=== PATIENT | male | born 1970 | race Two or more races ===

== ENCOUNTER 2024-09-15 10:11 | Emergency (ER) | payer SELFPAY ==
[2024-09-15] MEDS: PROPARACAINE 0.5% OPHTH DROPS 15 ML BTL BOTH EYES STA (11:38)
[2024-09-15] MEDS: TOBRA-DEXAMET 0.3-0.1% OPHTH DROPS 2.5 ML BTL BOTH EYES STA (11:39)
[2024-09-15] MEDS: DIPH,PERTUS(ACELL)TETVAC-LF 0.5 ML VIAL IM ONE (11:39)
[2024-09-15] MEDS: FLUORESCEIN STRIPS 1 MG STRIP RIGHT EYE ONE (11:39)
[2024-09-15 12:20] VITALS: BP 129/72; PULSE 74; RESP 18; TEMP 98.1
--- NOTE | 2024-09-15 17:01 | ED ---
Eye Problem HPI - General Source: patient Mode of arrival: ambulatory Limitations: no limitations - History of Present Illness chief complaint: eye pain, eye redness, foreign body Onset Description: sudden Location: right eye Place: home If Injury: occurred while hammering/grinding Eye Symptoms: burning, redness, pain, foreign body sensation Severity: mild Associated Symptoms: none Treatments Prior to Arrival: irrigated eye, OTC eye drops - Related Data Patient Tetanus UTD: No (Patient received tetanus vaccine today.) <Paula He - Last Filed: 09/23/24 22:56> <Roger Solis - Last Filed: 09/26/24 08:01> - General Chief complaint: Eye Problems Stated complaint: metal in R eye Time Seen by Provider: 09/15/24 10:41 - History of Present Illness Initial comments: Patient is a 54-year-old male who presents to the ER with foreign body in his right eye. Patient states he was grinding. Patient states he was wearing safety goggles. He attempted some eyedrops and irrigation but was unsuccessful. Patient went to urgent care who were unsuccessful in removing as well. Patient denies any fevers, chills, vomiting, nausea, diarrhea. (YingPaula) - Related Data Allergies Allergy/AdvReac Type Severity Reaction Status Date / Time No Known Allergies Allergy Verified 09/15/24 10:28 Review of Systems ROS Other: All systems not noted in ROS Statement are negative. Constitutional: Denies: fever, chills Eyes: Reports: eye pain Cardiovascular: Denies: chest pain Gastrointestinal: Denies: nausea, vomiting, diarrhea Skin: Denies: rash, lesions Neurological: Denies: headache <Paula He - Last Filed: 09/23/24 22:56> ROS Other: All systems not noted in ROS Statement are negative. <Roger Solis - Last Filed: 09/26/24 08:01> ROS Statement: Those systems with pertinent positive or pertinent negative responses have been documented in the HPI. Past Medical History Past Medical History: No Reported History History of Any Multi-Drug Resistant Organisms: None Reported Past Surgical History: No Surgical Hx Reported Past Psychological History: No Psychological Hx Reported Smoking Status: Former smoker Past Alcohol Use History: Occasional Past Drug Use History: None Reported <Paula He - Last Filed: 09/23/24 22:56> General Exam Limitations: no limitations General appearance: alert Expanded Eyelids: Swelling: Right Pupils: Regular, Round: Bilateral Sclera/Conjunctival: Injection: Right, Foreign Body: Right Posterior chamber: Deferred: Bilateral Respiratory exam: Absent: respiratory distress, wheezes, rales Cardiovascular Exam: Present: regular rate, normal rhythm Skin exam: Present: warm, dry, intact <Paula He - Last Filed: 09/23/24 22:56> Course Vital Signs 09/15/24 09/15/24 10:25 12:19 Temperature 97.7 F 98.1 F Pulse Rate 73 74 Respiratory 20 18 Rate Blood Pressure 138/84 129/72 O2 Sat by Pulse 99 100 Oximetry Procedures - Forgein Body Removal Eye Site: Right Anesthetic Used: Proparacaine Eye Exam Technique: Harrison Lamp, Fluorescein Foreign Body Suspected: Metal Forgein Body Removal Technique: Cotton Swab, Needle Remaining Debris: No Patient Tolerated: no complications <Paula He - Last Filed: 09/23/24 22:56> Medical Decision Making <YingPaula - Last Filed: 09/23/24 22:56> <Roger Solis - Last Filed: 09/26/24 08:01> - Medical Decision Making Was pt. sent in by a medical professional or institution ([facility], PSYCHIATRY PHYSICIAN, urgent care, hospital, or retirement...) When possible be specific @ -Patient was sent from urgent care. Did you speak to anyone other than the patient for history (EMS, parent, family, police, friend...)? What history was obtained from this source @ -No Did you review nursing and triage notes (agree or disagree)? Why? @ -I reviewed and agree with nursing and triage notes Were old charts reviewed (outside hosp., previous admission, EMS record, old EKG, old radiological studies, urgent care reports/EKG's, retirement records)? Report findings @ -No old charts were reviewed Differential Diagnosis? @ -Foreign body of the eye, blepharitis, conjunctivitis EKG interpreted by me (3pts min.). @ -As above X-rays interpreted by me (1pt min.). @ -None done CT interpreted by me (1pt min.). @ -None done U/S interpreted by me (1pt. min.). @ -None done What testing was considered but not performed or refused? (CT, X-rays, U/S, labs)? Why? @ -None What meds were considered but not given or refused? Why? @ -None Did you discuss the management of the patient with other professionals (professionals i.e. Dr., PA, PSYCHIATRY PHYSICIAN, lab, RT, psych nurse, social studies department chair, assistant chief of police, teacher, chief financial officer, rn field case manager)? Give summary @ -Case was discussed with the ED attending physician Dr. Solis. Was smoking cessation discussed for >3mins.? @ -No Was critical care preformed (if so, how long)? @ -No Were there social determinants of health that impacted care today? How? (Homelessness, low income, unemployed, alcoholism, drug addiction, transportation, low edu. Level, literacy, decrease access to med. care, intermediate, rehab)? @ -No Was there de-escalation of care discussed even if they declined (Discuss DNR or withdrawal of care, Hospice)? DNR status @ -No What co-morbidities impacted this encounter? (DM, HTN, Smoking, COPD, CAD, Cancer, CVA, ARF, Chemo, Hep., AIDS, mental health diagnosis, sleep apnea, morbid obesity)? @ -None Was patient admitted / discharged? Hospital course, mention meds given and route, prescriptions, significant lab abnormalities, going to OR and other pertinent info. @ -Foreign body was removed in the ER successfully. Patient received tetanus vaccine. Patient was discharged home with self-care. Undiagnosed new problem with uncertain prognosis? @ -No Drug Therapy requiring intensive monitoring for toxicity (Heparin, Nitro, Insulin, Cardizem)? @ -No Were any procedures done? @ -No Diagnosis/symptom? @ -Foreign body of the eye Acute, or Chronic, or Acute on Chronic? @ -Acute Uncomplicated (without systemic symptoms) or Complicated (systemic symptoms)? @ -Uncomplicated Side effects of treatment? @ -No Exacerbation, Progression, or Severe Exacerbation? @ -No Poses a threat to life or bodily function? How? (Chest pain, [place], [place], pneumonia, PE, COPD, DKA, ARF, appy, cholecystitis, CVA, Diverticulitis, Homicidal, Suicidal, threat to staff... and all critical care pts) @ -No (He,Paula) I personally saw the patient and performed the critical portion of the service. I discussed the patient care with the resident. I directed management, care planning and final disposition of the patient. This includes, but not limited to, review of all lab work, radiological studies, EKG's, consultations, vital signs, and nursing notes. EKG interpreted by me (3pts min.) @As above X-Rays interpreted by me (1 pt min.) @None CT interpreted by me ( 1pt min.) @None U/S interpreted by me (1 pt min.) @None Critical care time of 0 minutes excluding separately billable procedures was spent in conjunction with critical care activities provided by the Resident and Attending simultaneously. I was present during no procedures for all critical portions of the procedure and as immediately available to furnish service during the entire procedure. (Roger Solis) Disposition Is patient prescribed a controlled substance at d/c from ED?: No Time of Disposition: 11:00 <Paula He - Last Filed: 09/23/24 22:56> <Roger Solis - Last Filed: 09/26/24 08:01> Clinical Impression: Foreign body of cornea Disposition: HOME SELF-CARE Additional Instructions: Patient to use TobraDex eyedrops every 4 hours for the next few days. If symptoms worsen or persist, patient is to return to the ER. Referrals: None,Stated [Primary Care Provider] - 1-2 days
== END 2024-09-15 12:20 | disposition home or self-care (01) ==
LOC: EC 10:11
DX: T15.01XA Foreign body in cornea, right eye, initial encounter (principal); Z87.891 Personal history of nicotine dependence; Z23 Encounter for immunization; W31.89XA Contact with other specified machinery, initial encounter
CPT/HCPCS: 65220; 90471; 90715; 99283